=== PATIENT | female | born 1950 | race Caucasian/White ===

== ENCOUNTER 2023-12-04 14:49 | Emergency (ER) | payer OTHER, SELFPAY ==
--- NOTE | ~2023-12-04 | XR_ITS ---
EXAMINATION: XR SHOULDER, RIGHT CLINICAL INFORMATION: Tenderness status-post fall. COMPARISON: None available. TECHNIQUE: AP external rotation, Grashey, scapular Y, and axillary views of the right shoulder. FINDINGS: There is bony demineralization. There is a displaced fracture of the surgical neck of the proximal right humerus. A fracture fragment is seen arising from the greater tuberosity of the proximal right humerus. The glenohumeral joint appears intact. The acromioclavicular and coracoclavicular intervals are normal. No pneumothorax is seen. XR/XR shoulder RT min 2V IMPRESSION: A displaced fracture is seen at the surgical neck of the proximal right humerus. There is a fracture fragment arising from the greater tuberosity of the proximal right humerus. No dislocation is seen.
--- NOTE | ~2023-12-04 | CT_ITS ---
EXAMINATION: CT brain and CT cervical spine without contrast. CLINICAL INDICATION: Fall with head strike. COMPARISON: None. TECHNIQUE: 5 mm thin axial and reformatted 2 mm thin sagittal and coronal images of brain were obtained. Subsequently axial 3 mm thin and reformatted 2 mm thin sagittal and coronal images of cervical spine were obtained. DLP 1090. FINDINGS: Brain: There is no acute intra-axial, extra-axial bleed, masses or midline shift. There is no acute infarction evolution. There is no edema. The lateral ventricles are symmetrical in size and configuration without enlargement. Bone windows reveal no calvarial abnormality. Bilateral paranasal sinuses on well-aerated. There is evidence of previous left mastoid surgery and complete opacification of right mastoid sinus. CT/CT head/brain wo IV con IMPRESSION: No acute intracranial process seen. Chronic right mastoid sinus inflammatory changes. Left mastoidectomy changes are noted.
--- NOTE | ~2023-12-04 | CT_ITS ---
EXAMINATION: CT brain and CT cervical spine without contrast. CLINICAL INDICATION: Fall with head strike. COMPARISON: None. TECHNIQUE: 5 mm thin axial and reformatted 2 mm thin sagittal and coronal images of brain were obtained. Subsequently axial 3 mm thin and reformatted 2 mm thin sagittal and coronal images of cervical spine were obtained. DLP 1090. FINDINGS: Brain: There is no acute intra-axial, extra-axial bleed, masses or midline shift. There is no acute infarction evolution. There is no edema. The lateral ventricles are symmetrical in size and configuration without enlargement. Bone windows reveal no calvarial abnormality. Bilateral paranasal sinuses on well-aerated. There is evidence of previous left mastoid surgery and complete opacification of right mastoid sinus. CT/CT cervical spine wo IV con IMPRESSION: No acute intracranial process seen. Chronic right mastoid sinus inflammatory changes. Left mastoidectomy changes are noted.
[2023-12-04 15:01] VITALS: BP 166/62; PULSE 77; RESP 18; TEMP 36.7; O2SAT 95
[2023-12-04 15:09] VITALS: BP 138/64; PULSE 70; O2SAT 96; BMI 34.2
[2023-12-04 15:23] LABS: Appearance Urine Clear; Color Urine Yellow; Glucose Urine UA Negative (Negative); Leukocyte Esterase Urine Large (3+) (Negative); Nitrite Urine Positive (Negative); PH 5.5 (5.0-9.0); Specific Gravity - Urine 1.015 (1.005-1.025); UMIC TRIGGER UACC YES; Urine Blood Negative (Negative); Urine Ketones Negative (Negative); Urine Protein Negative (Neg-Trace)
[2023-12-04 15:28] LABS: Bacteria Urine 4+ (None Seen); Hyaline Casts Urine 0-2 /LPF (0-2); RBC Urine 0-2 /HPF (0-2); UACC Culture Trigger YES; WBC Urine >50 /HPF (0-5)
--- NOTE | 2023-12-04 16:10 | ED.GENADULT ---
HPI - General Adult General Chief complaint: Fall Stated complaint: FALL ON R SHOULDER Time Seen by Provider: 12/04/23 15:27 Source: patient and EMS Mode of arrival: EMS Limitations: no limitations History of Present Illness ED Provider: Leisa Noble NP HPI narrative: Patient is a 73-year-old female presenting to the emergency department with complaint of right shoulder pain [place]. Patient states that she was rushing to get to the bathroom when she tripped and fell onto arm. Does report head strike, denies loss of consciousness. She is not anticoagulated. Denies headache, neck pain, back pain. Denies any blurred vision, double vision or other visual changes. Denies any nausea or vomiting. Patient placed in C-collar by EMS prior to arrival. MD complaint: Right shoulder pain Onset (ago): minute(s) Severity: severe Quality: aching Pain Consistency: constant Exacerbating factors: movement Associated symptoms: denies other symptoms Treatments prior to arrival: none Related Data Previous Rx's ?Medication ?Instructions ?Recorded cefuroxime axetil 250 mg tablet 250 mg PO Q12H #10 tabs 12/04/23 oxycodone 5 mg tablet 5 mg PO Q6H PRN severe pain (scale 12/04/23 score 7-10) #12 tabs Allergies Allergy/AdvReac Type Severity Reaction Status Date / Time amoxicillin Allergy Unknown Verified 12/04/23 15:15 hydroxyzine [From Atarax] Allergy Unknown Verified 12/04/23 15:15 levofloxacin [From Levaquin] Allergy Unknown Verified 12/04/23 15:15 lisinopril Allergy Unknown Verified 12/04/23 15:15 Penicillins Allergy Unknown Verified 12/04/23 15:15 Sulfa (Sulfonamide Allergy Unknown Verified 12/04/23 15:15 Antibiotics) sulfamethoxazole Allergy Unknown Verified 12/04/23 15:15 [From Septra] trimethoprim [From Septra] Allergy Unknown Verified 12/04/23 15:15 venlafaxine [From Effexor] Allergy Unknown Verified 12/04/23 15:15 Review of Systems Review of Systems: As per HPI. Yes all other systems are reviewed and are negative Constitutional: Constitutional: Reports as per HPI PMFSH Social History Social History Smoked in Last 30 Days: No Use of substances other than those prescribed or required for medical reasons: No Advance Directives: No Advance Directives Information Provided: No Do you have a plan to hurt others: No Plan Physical Exam ED Vital Signs: Vital Signs - 24 hr 12/04/23 15:01 12/04/23 18:41 12/04/23 20:53 Temperature 98.0 F 98.5 F Pulse Rate 77 81 80 Respiratory Rate 18 16 18 Blood Pressure 166/62 H 131/55 L 125/49 L Pulse Oximetry 95 93 96 Oxygen Delivery Method Room Air Room Air Room Air BMI result Body Mass Index 34.2 Vital signs have been reviewed and appear to be correct. Blood pressure elevated. Heart rate normal. Respiratory rate normal. Temperature normal. Oxygen saturation normal. Const General: cooperative, healthy appearing and no acute distress Orientation/consciousness: oriented to person, oriented to place, oriented to time and patient oriented x3 Limitations: no limitations HENMT Head: Yes normocephalic and Yes atraumatic Ears: external ears normal General nose exam: Normal external nose present Face and sinus: Yes face symmetric Mouth: oropharynx normal and moist mucous membranes Throat: Yes uvula midline Eyes Pupils: Equal, round and reactive pupils present Neck Neck: Yes normal visual inspection and Yes supple Resp Effort & Inspection: normal respiratory effort and able to speak in complete sentences Auscultation: clear to auscultation bilaterally Cardio Rate: regular rate Rhythm: regular rhythm Heart sounds: S1 normal heart sound present and S2 normal heart sound present GI Palpation (GI): Soft to palpation and nontender Auscultation: normoactive bowel sounds General: Yes no CVA tenderness Back/Spine/Pelvis Back: no CVA tenderness Cervical Spine: collar present Skin General skin exam: elasticity normal and turgor normal Neuro General: oriented to person, oriented to place, oriented to time, patient oriented x3, moves all extremities, no focal motor deficits and CN's II-XI intact bilaterally Cranial nerves: Yes Equal, round and reactive pupils present Cognition (Neuro): normal cognition Extrem General: Yes full ROM, Yes no pedal edema and Yes no calf tenderness Right upper extremity: shoulder/upper arm Details: tenderness (diffuse) and abnormal ROM (limited in all directions due to pain) and wrist Details: radial pulse present Left upper extremity: normal to inspection, full ROM and normal capillary refill Right lower extremity: normal to inspection, full ROM and normal capillary refill Left lower extremity: normal to inspection, full ROM and normal capillary refill Psych Mental Status: mental status grossly normal Affect: normal affect Thought process: Normal thought process present Course Reevaluation(s) Reevaluation #1: Discussed all imaging results with the patient, she has a proximal humerus fracture. The patient states that she moving is flying back to [place] where she lives in 2 days. She prefer to follow up with Orthopedics in that area. I asked our x-ray team to make a disc for the patient to bring with her back home. We will discharge the patient with cefuroxime for UTI and oxycodone for her pain Time: 22:07 Medications Administered Discontinued Medications Generic Name Dose Route Start Last Admin Trade Name Freq PRN Reason Stop Dose Admin Hydromorphone HCl 1 mg 12/04/23 19:15 12/04/23 19:31 Hydromorphone Hcl 1 Mg/Ml Syringe IM 12/04/23 19:16 1 mg ONCE ONE Administration Protocol Morphine Sulfate 4 mg 12/04/23 16:11 12/04/23 16:49 Morphine Sulfate 4 Mg/Ml Cartridge IM 12/04/23 16:12 4 mg ONCE ONE Administration Protocol Ondansetron HCl 4 mg 12/04/23 16:56 12/04/23 17:00 Ondansetron Odt 4 Mg Tab.Rapdis TRANSLINGU 12/04/23 16:57 4 mg ONCE ONE Administration Medical Decision Making Medical Decision Making [facility] Narrative: Patient is a 73-year-old female presenting to the emergency department with complaint of right shoulder pain [place]. On exam patient is awake, A+Ox3, BP elevated likely secondary to pain, VS otherwise WNL, afebrile, normal neurological exam without focal deficits, physical exam findings as above. Given reported symptoms and physical exam findings, initial differential includes right humerus/shoulder fracture versus contusion. Less likely ICH, skull or cervical vertebral fracture or subluxation. Plan: CT head and C-spine, R shoulder x-ray, medicate for pain Patient signed out to [facility] pending imaging. Differential Diagnosis Differential Diagnoses: The differential diagnosis associated with the presentation includes As per [facility] Admission/Observation Consideration of admission/observation: Escalation of care including admission/observation considered Patient would have been admitted to the hospital had their work up had any findings where hospital admission was appropriate and their clinical presentation warranted hospital admission. Lab Data Labs: Lab Results 12/04/23 12/04/23 Range/Units 15:16 21:47 POC Glucose 145 H (60-115) mg/dL Urine Color Yellow Urine Appearance Clear Urine pH 5.5 (5.0-9.0) Ur Specific [place] 1.015 (1.005-1.025) Urine Protein Negative (Neg-Trace) mg/dL Urine Glucose (UA) Negative (Negative) mg/dL Urine Ketones Negative (Negative) mg/dL Urine Blood Negative (Negative) Urine Nitrite Positive H (Negative) Ur Leukocyte Esterase Large (3+) H (Negative) Urine RBC 0-2 (0-2) /HPF Urine WBC >50 H (0-5) /HPF Ur Squamous Epith Cells 3-5 (0-2) /HPF Urine Bacteria 4+ (None Seen) Hyaline Casts 0-2 (0-2) /LPF Independent Interpretation I performed an independent interpretation of an: Plain X-Ray Interpretation: Right shoulder x-ray shows proximal humerus fracture Discharge Plan Discharge Clinical Impression: Acute UTI, Fracture of proximal end of humerus Patient Disposition: Home, Self-Care Instructions: Arm Fracture in Adults (ED), Urinary Tract Infection in Women (ED) Additional Instructions: You have a fracture of the proximal humerus. You also have a urinary tract infection Take the antibiotic twice daily for 5 days Wear the sling throughout the day but did not wear overnight Follow-up with orthopedics You may choose your own orthopedics back to [place], but I did put a referral in for Orthopedics locally in case there were any issues with your travel back home Use ibuprofen/Tylenol for pain I recommend that you switch back and forth every 4 hours for the next 2 days Take oxycodone as needed for severe breakthrough pain This may make you sleepy, did not drink alcohol or drive after taking Follow-up with your primary doctor Prescriptions: New cefuroxime axetil 250 mg tablet 250 mg PO Q12H Qty: 10 0RF oxycodone 5 mg tablet 5 mg PO Q6H PRN (Reason: severe pain (scale score 7-10)) Qty: 12 0RF Rx Instructions: Partial Fill upon patient request. Referrals: Hector Bui MD [Physician] - (right proximal humerus fracture) Print Language: Georgian
[2023-12-04] MEDS: Morphine Sulfate 4 MG/ML CARTRIDGE IM (16:49)
[2023-12-04] MEDS: Ondansetron ODT 4 MG TAB.RAPDIS TRANSLINGU (17:00)
[2023-12-04 18:41] VITALS: BP 131/55; PULSE 81; RESP 16; O2SAT 93
[2023-12-04] MEDS: HYDROmorphone HCl 1 MG/ML SYRINGE IM ×2 (19:31→22:32)
--- NOTE | 2023-12-04 19:52 | PC.NURSE ---
pt medicated per mar with pain meds, now reports is ok to try for xray. pt to xray at this time.
[2023-12-04 20:53] VITALS: BP 125/49; PULSE 80; RESP 18; TEMP 36.9; O2SAT 96
--- NOTE | 2023-12-04 21:41 | PC.NURSE ---
+pulses to BUE. pt reports pain in R. shoulder 03/06, Jassi JONES aware. pt resting in stretcher, axox4, resp even and unlabored. call ramesh within reach. family at bedside.
[2023-12-04 21:51] LABS: Glucose, Whole Blood 145 mg/dL (60-115)
[2023-12-04] MEDS: cefuroxime axetiL 250 MG TABLET PO (22:32)
[2023-12-04] MEDS: oxyCODONE HCl Immed Release 5 MG TABLET PO (22:33)
[2023-12-04 22:51] VITALS: BP 125/49; PULSE 80; RESP 18; TEMP 36.9; O2SAT 96
== END 2023-12-04 22:52 | disposition home or self-care (01) ==
PROVIDERS: Emergency Provider Emergency Medicine
DX: S42.201A Unspecified fracture of upper end of right humerus, initial encounter for closed fracture (principal); N39.0 Urinary tract infection, site not specified; W01.0XXA Fall on same level from slipping, tripping and stumbling without subsequent striking against object, initial encounter; Y93.9 Activity, unspecified; Y92.59 Other trade areas as the place of occurrence of the external cause; Y99.9 Unspecified external cause status
CPT/HCPCS: 70450; 72125; 73030; 81001; 82947; 87086; 87088; 87186; 96372; 99284; J1170; J2270